=== PATIENT | female | born 1990 | race Caucasian/White ===

== ENCOUNTER 2017-10-19 09:54 | Day surgery (SDC) | payer OTHER ==
[~2017-10-19] VITALS: Ht 160 cm; Wt 81.6 kg
[2017-10-19 10:32] VITALS: BP 122/66
[2017-10-19 15:38] VITALS: BP 122/59
[2017-10-19 16:27] VITALS: BP 128/60
== END 2017-10-19 16:30 | disposition home or self-care (01) ==
LOC: SDC 09:54
PROVIDERS: Ophthalmology
PROC: 08QF3ZZ Repair Left Retina, Percutaneous Approach (ICD-10-PCS; principal; 2017-10-19)
DX: H33.012 Retinal detachment with single break, left eye (principal); J45.20 Mild intermittent asthma, uncomplicated; Z91.013 Allergy to seafood; Z88.8 Allergy status to other drugs, medicaments and biological substances; Z83.3 Family history of diabetes mellitus; Z82.49 Family history of ischemic heart disease and other diseases of the circulatory system
CPT/HCPCS: 84703; J0690; J1100; J1120; J2250; J2405; J2795; J3010